=== PATIENT | male | born 1985 | race Hispanic/Latino ===

== ENCOUNTER 2018-10-21 14:01 | Emergency (ER) | payer OTHER ==
--- NOTE | 2018-10-21 15:23 | ED PDOC ---
HPI: Back Time Seen by Provider: 10/21/18 14:57 Chief Complaint (Nursing): Back Pain Chief Complaint (Provider): back pain new onset History Per: Patient History/Exam Limitations: no limitations Onset/Duration Of Symptoms: Hrs (three or four), Waxing/Waning Current Symptoms Are (Timing): Still Present Quality Of Discomfort: Pressure (Pt presents to the ED complaining of significant right sided back (flank) pain that has been persistent and debilitating to the point of him having to leave work today early. Pt denies fever and does say that he has been having difficulty passing urine, though he is passing urine consistently. Pt denies NVD and fever), "Pain" Past Medical History Reviewed: Historical Data, Nursing Documentation, Vital Signs Vital Signs: Last Vital Signs Temp 97.7 F 10/21/18 14:37 Pulse 76 10/21/18 14:37 Resp 18 10/21/18 14:37 BP 156/97 H 10/21/18 14:37 Pulse Ox 100 10/21/18 14:37 - Family History Family History: States: Unknown Family Hx - Home Medications Home Medications: Ambulatory Orders Medication Instructions Recorded Sulfamethoxazole/Trimethoprim 1 tab PO BID #20 tab 10/21/18 [Bactrim DS 800 mg-160 mg] Tamsulosin HCl [Flomax] 1 cap PO DAILY #30 cap 10/21/18 oxyCODONE/Acetaminophen [Percocet 1 ea PO QID #20 tab 10/21/18 5/325 mg Tab] - Allergies Allergies/Adverse Reactions: Allergies Allergy/AdvReac Type Severity Reaction Status Date / Time No Known Allergies Allergy Verified 10/21/18 14:36 Review of Systems ROS Statement: Except As Marked, All Systems Reviewed And Found Negative Genitourinary Male: Positive for: Dysuria Musculoskeletal: Positive for: Back Pain Physical Exam - Physical Exam Cardiovascular/Chest: Positive for: Regular Rate, Rhythm, Chest Non Tender. Negative for: Edema, Gallop, Murmur, Bradycardia, Tachycardia Respiratory: Positive for: Normal Breath Sounds. Negative for: Decreased Breath Sounds, Accessory Muscle Use, Crackles, Rales, Rhonchi, Stridor, Wheezing, Respiratory Distress Pulses-Carotid (L): 2+ Pulses-Carotid (R): 2+ Pulses-Radial (L): 2+ Pulses-Radial (R): 2+ Back: Positive for: Normal Inspection, R CVA Tenderness. Negative for: L CVA Tenderness, Vertebral Tenderness, Decreased ROM, Muscle Spasm Neurologic/Psych: Positive for: Alert - Laboratory Results Result Diagrams: 10/21/18 16:13 10/21/18 16:13 - ECG O2 Sat by Pulse Oximetry: 100 Medical Decision Making Medical Decision Making: Pt informed of dx Hat use Referred to Urology Pain medication and zofran + flomax provided Disposition - Clinical Impression Clinical Impression: Renal calculus or stone - Patient ED Disposition Is Patient to be Admitted: No Doctor Will See Patient In The: Office Counseled Patient/Family Regarding: Studies Performed, Diagnosis, Need For Followup, Rx Given - Disposition Referrals: Anatoliy Lam MD [Medical Doctor] - Disposition: Routine/Home Disposition Time: 18:54 Condition: STABLE Prescriptions: oxyCODONE/Acetaminophen [Percocet 5/325 mg Tab] 1 ea PO QID #20 tab Sulfamethoxazole/Trimethoprim [Bactrim DS 800 mg-160 mg] 1 tab PO BID #20 tab Tamsulosin HCl [Flomax] 1 cap PO DAILY #30 cap Instructions: Kidney Stones in Adults, Flank Pain, Kidney Stones (DC), Kidney Stone Diet, How to Strain Your Urine Forms: [facility] ([place])
[2018-10-21] MEDS ORDERED: Sodium Chloride 0.9% 1,000 ML IV ONE (15:30)
[2018-10-21 16:19] LABS: BASO % 0.2 % (0.0-2.0); HEMOGLOBIN 16.5 g/dL (12.0-18.0); LYMPH # 0.6 K/uL (1.0-4.3); LYMPH % 3.2 % (20.0-40.0); MEAN CELL VOLUME 86.4 fl (80.0-94.0); MEAN CORPUSCULAR HEMOGLOBIN 29.1 pg (27.0-31.0); MEAN CORPUSCULAR HGB CONC 33.7 g/dL (33.0-37.0); MEAN PLATELET VOLUME 7.2 fl (7.2-11.7); MONO # 0.9 K/uL (0.0-0.8); MONO % 4.9 % (0.0-10.0); NEUT # 17.3 K/uL (1.8-7.0); NEUT % 91.7 % (50.0-75.0); PLATELET COUNT 299 K/uL (130-400); RBC 5.67 Mil/uL (4.40-5.90); RED CELL DISTRIBUTION WIDTH 13.1 % (11.5-14.5); WHITE BLOOD COUNT 18.9 K/uL (4.8-10.8)
[2018-10-21 16:31] LABS: ALB/GLOB RATIO 1.3 (1.0-2.1); ALBUMIN 4.5 g/dL (3.5-5.0); ALT/SGPT 48 U/L (21-72); AST/SGOT 32 U/L (17-59); BLOOD UREA NITROGEN 23 mg/dl (9-20); CALCIUM 9.9 mg/dL (8.4-10.2); GFR NON-AFRICAN AMERICAN > 60; LIPASE 44 U/L (23-300)
--- NOTE | 2018-10-21 16:54 | CT ---
Date of service: 10/21/2018 PROCEDURE: CT Abdomen and Pelvis without intravenous contrast HISTORY: r/o stones COMPARISON: None. TECHNIQUE: Unenhanced. Neither IV nor oral contrast administered Radiation dose: Total exam DLP = 891.15 mGy-cm. This CT exam was performed using one or more of the following dose reduction techniques: Automated exposure control, adjustment of the mA and/or kV according to patient size, and/or use of iterative reconstruction technique. FINDINGS: LOWER THORAX: Unremarkable. LIVER: Unremarkable. No gross lesion or ductal dilatation. GALLBLADDER AND BILE DUCTS: Unremarkable. PANCREAS: Unremarkable. No gross lesion or ductal dilatation. SPLEEN: Unremarkable. ADRENALS: Unremarkable. No mass. KIDNEYS AND URETERS: 1.5 mm calculus at the right ureterovesical junction. Minimal hydroureter. Moderate hydronephrosis. The right kidney is edematous with perinephric stranding without evidence of urinoma. Left kidney in ureter: Unremarkable. No hydronephrosis. No solid mass. VASCULATURE: Unremarkable. No aortic aneurysm. No atherosclerotic calcification or mural plaque present. BOWEL: Unremarkable. No obstruction. No gross mural thickening. APPENDIX: A normal appendix is visualized in it's entirety. PERITONEUM: Unremarkable. No free fluid. No free air. LYMPH NODES: Unremarkable. No enlarged lymph nodes. BLADDER: The bladder is empty, decompressed. REPRODUCTIVE: Unremarkable. BONES: No acute fracture. OTHER FINDINGS: None. IMPRESSION: 1.5 mm calculus right ureterovesical junction. Edematous, moderately hydronephrotic right kidney.
[2018-10-21] MEDS ORDERED: Oxycodone/Acetaminophen 5/325 mg Tab PO STA (18:05)
[2018-10-21 18:39] LABS: SQUAMOUS EPITHIAL < 1 /hpf (0-5); URINE BACTERIA OCC (<OCC); URINE BILIRUBIN NEGATIVE (NEGATIVE); URINE BLOOD NEGATIVE (NEGATIVE); URINE CLARITY TURBID (Clear); URINE COLOR BLUE (YELLOW); URINE GLUCOSE (UA) NEG (NEGATIVE); URINE LEUKOCYTE ESTERASE NEG Leu/uL (Negative); URINE PROTEIN 30 mg/dL (NEGATIVE); URINE UROBILINOGEN 0.2-1.0 mg/dL (0.2-1.0); WBC CLUMPS FEW /hpf
[2018-10-21] MEDS ORDERED: Oxycodone/Acetaminophen 5/325 mg Tab ONE (18:40)
[2018-10-21] MEDS ORDERED: Tmp-Smz 800 mg-160 mg DS Tab PO STA (18:49)
[2018-10-21 18:53] VITALS: BP 150/87; PULSE 87; RESP 20; TEMP 98.6
[2018-10-21 18:56] VITALS: O2SAT 100
[2018-10-21 18:58] LABS: BANDS 1 % (0-2); BASOPHIL 1 % (0-2); LYMPHOCYTE 3 % (20-50); MONOCYTE 5 % (0-10); NEUTROPHIL 90 % (42-75); TOTAL CELLS COUNTED 100
[2018-10-21 18:59] LABS: PLATELET ESTIMATE NORMAL (NORMAL)
[2018-10-21] MEDS ORDERED: Tmp-Smz 800 mg-160 mg DS Tab ONE (19:20)
== END 2018-10-21 19:25 | disposition home or self-care (01) ==
LOC: H.ER 14:01
DX: N13.2 Hydronephrosis with renal and ureteral calculous obstruction (principal)
CPT/HCPCS: 74176; 80053; 81003; 83690; 84484; 85025; 87804; 96361; 96374; 99283; J2405; J7030